=== PATIENT | female | born 1970 | race Caucasian/White ===

== ENCOUNTER → 2017-10-28 | Outpatient (CLI) | payer BC ==
[~2017-10-28] MED LIST: LAMOTRIGINE200 MG PO; TRAZ100 PO
== END | disposition home or self-care (01) ==
LOC: LAB 11:35 → LAB SHORT 11:35
PROVIDERS: Nurse Practitioner
DX: Z01.419 Encounter for gynecological examination (general) (routine) without abnormal findings (principal)
CPT/HCPCS: G0145

== ENCOUNTER 2018-07-02 05:53 | Emergency (ER) | payer BC ==
[~2018-07-02] VITALS: Ht 172.7 cm; Wt 90.7 kg
[2018-07-02 07:04] LABS: Alanine Aminotransfer (ALT/SGP 23 U/L (12-78); Albumin, Blood 4.4 g/dL (3.4-5.0); Albumin/Globulin Ratio 1.2 (0.8-1.8); Alk Phos 90 U/L (50-136); Anion Gap 17 mmol/L (6-16); Aspartate Aminotrans (AST/SGOT 9 U/L (12-37); Bilirubin, Total 0.2 mg/dL (0.1-1.0); Blood Urea Nitrogen 19 mg/dL (8-24); Bun/Creatinine Ratio 20.6 (12.0-20.0); CO2, Blood 18 mmol/L (21-32); Calcium, Blood 9.3 mg/dL (8.5-10.1); Chloride, Blood 111 mmol/L (98-108); Creatinine, Blood 0.92 mg/dL (0.40-1.00); Globulin, Blood 3.8 g/dL (2.2-4.0); Glomerular Filtration Rate >60 (60-); Glucose, Blood 133 mg/dL (70-99); Potassium, Blood 3.6 mmol/L (3.5-5.5); Sodium, Blood 146 mmol/L (136-145); Total Protein, Blood 8.2 g/dL (6.4-8.2)
[2018-07-02] MEDS ORDERED: NEOPOLHCSU LEFTEAR (07:44)
== END 2018-07-02 08:07 | disposition home or self-care (01) ==
LOC: ER 05:53
PROVIDERS: Emergency Medicine
DX: H60.92 Unspecified otitis externa, left ear (principal); G40.909 Epilepsy, unspecified, not intractable, without status epilepticus; Z79.899 Other long term (current) drug therapy
CPT/HCPCS: 36415; 80053; 96374; 99283-25; J2060

== ENCOUNTER → 2019-10-03 | Outpatient (CLI) | payer BC ==
[~2019-10-03] MED LIST changes: +NEOPOLHCSU LEFTEAR
== END ==
LOC: LAB SHORT 08:02 → PLD 08:02
DX: N93.9 Abnormal uterine and vaginal bleeding, unspecified (principal)
CPT/HCPCS: 88305

== ENCOUNTER 2019-11-24 11:55 | Day surgery (SDC) | payer BC ==
[~2019-11-24] VITALS: Ht 172.7 cm; Wt 93.8 kg
[~2019-11-24 11:55] MED LIST changes: +LOSA50 PO
[2019-11-24] MEDS ORDERED: LORA.5 PO (14:01)
--- NOTE | 2019-11-24 19:55 | NUR ---
PT ARRIVED TO ROOM 210 FROM PACU. PT ALERT, VSS. PT REP MILD CRAMPING, STATES PAIN JERALD. BT HYPO, PT DENIES N/V, IS REQUESTING WATER. INCISIONS W/WOUND GLUE ALTAF, SCANT SS DRNG NOTED. NO VAGINAL BLEEDING NOTED. WYNN PATANT DRNG CLEAR PALE YELLOW URINE. PT ORIENTED, TO ROOM/CALL LIGHT. WILL CONT TO MONITOR AND TX PER ORDERS.
[2019-11-25 04:34] LABS: BASOPHILS ABSOLUTE AUTO 0.02 K/mm3 (0.00-0.23); BASOPHILS PERCENT AUTO 0 % (0-2); EOSINOPHILS PERCENT AUTO 0 % (0-6); Hematocrit 36.4 % (33.0-51.0); Hemoglobin 12.1 g/dL (11.5-16.0); IMMATURE GRAN ABSOLUTE AUTO 0.06 K/mm3 (0.00-0.10); IMMATURE GRAN PERCENT AUTO 0 % (0-1); LYMPHOCYTES ABSOLUTE AUTO 1.22 K/mm3 (0.84-5.20); LYMPHOCYTES PERCENT AUTO 8 % (21-46); MONOCYTES ABSOLUTE AUTO 0.65 K/mm3 (0.16-1.47); MONOCYTES PERCENT AUTO 4 % (4-13); Mean Corpuscular HGB Conc 33.2 g/dL (31.5-36.5); Mean Corpuscular Volume 90 fL (80-100); Mean Platelet Volume 10.1 fL (9.1-12.4); NEUTROPHILS PERCENT AUTO 87 % (41-73); Platelet Count 247 K/mm3 (150-400); RDW Coefficient Variation 12.2 % (11.7-14.2); RDW Standard Deviation 40.2 fL (35.1-46.3); Red Blood Cell Count 4.04 M/mm3 (3.80-5.20); White Blood Cell Count 15.15 K/mm3 (4.00-11.30)
[2019-11-25 05:05] LABS: Anion Gap 6 mmol/L (6-16); Blood Urea Nitrogen 9 mg/dL (8-24); Bun/Creatinine Ratio 10.1 (12.0-20.0); CO2, Blood 25 mmol/L (21-32); Calcium, Blood 8.5 mg/dL (8.5-10.1); Chloride, Blood 107 mmol/L (98-108); Creatinine, Blood 0.89 mg/dL (0.40-1.00); Glomerular Filtration Rate >60 (60-); Glucose, Blood 126 mg/dL (70-99); Potassium, Blood 4.4 mmol/L (3.5-5.5); Sodium, Blood 138 mmol/L (136-145)
--- NOTE | 2019-11-25 07:17 | NUR ---
POD 1 S/P ROBOTIC LAP HYSTER. PT VSS T/O NIGHT. NO DRNG NOTED FROM INCISIONS. NO SIG VAGINAL BLEEDING NOTED. PAIN MGD W/2 NORCO W/REP RELIEF. PT JERALD PO, NO N/V, REP NO FLATUS YET. WYNN PATANT DRNG CLEAR PALE YELLOW URINE. PLAN FOR CT-UROGRAM THIS AM.
[2019-11-25] MEDS ORDERED: IBUP800 PO (14:26)
[2019-11-25] MEDS ORDERED: HYDR1TAB94 PO (14:26)
--- NOTE | 2019-11-25 14:33 | NUR ---
DISCHARGE PER DR COLEMAN PT DID NOT HAVE TO STAY FOR A VOID POST WYNN REMOVAL. PT AMBULATING, PAIN CONTROLLED, EATING/DRINKING. PT HAS SCRIPTS AT HOME AND STATES SHE UNDERSTANDS SCRIPTS. UNDERSTANDS DISCHARGE INSTRUCTIONS. DECLINES W/C ESCORTED OUT.
--- NOTE | 2019-11-25 16:26 | NUR ---
11/25/19 1626 Pap,Claudio Drake VERIFICATION: CORRECTIONS IN CHART
== END 2019-11-25 14:40 | disposition home or self-care (01) ==
LOC: ORSCMMR 11:55 → ORD 13:30 → SURS 19:30 → ORSCMMR 11-25 14:40 → ORD 12-08 15:00
PROVIDERS: Obstetrics & Gynecology
PROC: 8E0W8CZ Robotic Assisted Procedure of Trunk Region, Via Natural or Artificial Opening Endoscopic (ICD-10-PCS; principal; 2019-11-24 13:30)
PROC: 0UT04ZZ Resection of Right Ovary, Percutaneous Endoscopic Approach (ICD-10-PCS; principal; 2019-11-24 13:30)
PROC: 0UT94ZZ Resection of Uterus, Percutaneous Endoscopic Approach (ICD-10-PCS; principal; 2019-11-24 13:30)
PROC: 0UT74ZZ Resection of Bilateral Fallopian Tubes, Percutaneous Endoscopic Approach (ICD-10-PCS; principal; 2019-11-24 13:30)
DX: N80.0 Endometriosis of uterus (principal); R10.2 Pelvic and perineal pain; N93.9 Abnormal uterine and vaginal bleeding, unspecified; I10 Essential (primary) hypertension; Z79.899 Other long term (current) drug therapy
CPT/HCPCS: 58571; S2900; 36415; 74178; 80048; 85025; 86900; 86901; 88307; A9270-GY; J0330; J0690; J1100; J2405; J2704; J2710; J2765; J3010; J7120; Q9967

== ENCOUNTER 2020-07-17 10:54 | Emergency (ER) | payer BC ==
[~2020-07-17] VITALS: Ht 172.7 cm; Wt 89.4 kg
[~2020-07-17 10:54] MED LIST changes: +HYDR1TAB94 PO; +IBUP800 PO; +LORA.5 PO
[2020-07-17] MEDS ORDERED: Norco 5-325 Ta1 EACH PO (12:25)
[2020-07-17] MEDS ORDERED: CYCL10 PO (12:25)
== END 2020-07-17 13:33 | disposition home or self-care (01) ==
LOC: ER 10:54
DX: S83.91XA Sprain of unspecified site of right knee, initial encounter (principal); Z79.899 Other long term (current) drug therapy; X50.1XXA Overexertion from prolonged static or awkward postures, initial encounter
CPT/HCPCS: 29505; 36415; 96374-59; 96375-59; 99283-25; A9270; J1170; J2060; J2405

== ENCOUNTER 2020-09-07 09:24 | Day surgery (SDC) | payer BC ==
[~2020-09-07] VITALS: Ht 172.7 cm; Wt 90.9 kg
[~2020-09-07 09:24] MED LIST changes: +CYCL10 PO; +Norco 5-325 Ta1 EACH PO
[2020-09-07] MEDS ORDERED: LORA.5 PO (09:55)
--- NOTE | 2020-09-07 13:54 | NUR ---
09/07/20 [address] COMPUTER WAS DOWN DURING THIS PT. STAY. FENTANYL WAS GIVEN 4 TIMES FOR PAIN LEVEL 9, 9, 7, 6 BEFORE RESOLVING DOWN TO A 4 WHICH PT. STATES COMFORTABLE FOR HER. DISCHARGE INSTRUCTIONS GIVEN AND DISCHARGED HOME WITH ALL BELONGINGS.
== END 2020-09-07 13:54 | disposition home or self-care (01) ==
LOC: ORSCSDS 09:24
PROVIDERS: Orthopaedic Surgery
PROC: 0SBC4ZZ Excision of Right Knee Joint, Percutaneous Endoscopic Approach (ICD-10-PCS; principal; 2020-09-07 11:00)
DX: S83.251A Bucket-handle tear of lateral meniscus, current injury, right knee, initial encounter (principal); M94.261 Chondromalacia, right knee; I10 Essential (primary) hypertension; G40.909 Epilepsy, unspecified, not intractable, without status epilepticus; Z79.899 Other long term (current) drug therapy
CPT/HCPCS: J0690; J1100; J2250; J2405; J2704; J3010; J7120

== ENCOUNTER → 2021-06-14 | Outpatient (CLI) | payer BC | LOC: PLD 07:04 → LAB SHORT 07:04 | DX: D48.5 Neoplasm of uncertain behavior of skin (principal) | CPT/HCPCS: 88312 ==